=== PATIENT | male | born 1970 | race Caucasian/White ===

== ENCOUNTER 2017-10-02 12:21 | Inpatient (IN) | payer OTHER ==
[~2017-10-02] VITALS: Ht 180.3 cm; Wt 106.7 kg
--- NOTE | ~2017-10-02 | CON ---
[place], [place] REPORT OF CONSULTATION NAME: АННА PEREIRA UNIT #: [id number] ROOM: 511 DOCTOR: HARSHAD DUKE DMD BIRTHDATE: [birth year] DOS: REASON FOR CONSULTATION: Right-sided dental abscess. HISTORY OF PRESENT ILLNESS: The patient was admitted for right-sided facial swelling and pain. On exam minimal swelling noted. The patient denies any dyspnea or dysphagia. No submandibular swelling, submental swelling. Normal range of motion. Intraoral exam reveals maxillary edentulism and multiple carious teeth on the mandible with significant periodontal disease. No sublingual swelling noted. Extreme tenderness of the lower right first molar. Discussed treatment needed, recommended full mouth extraction. The patient okay for dental discharge with oral antibiotics and should followup with private dentist for extraction therapy. HARSHAD DUKE DMD CM:CONSTR:REPORT OF CONSULTATION 0941 10/10/17 1558 interface
[~2017-10-02 12:21] MED LIST: ALLERGY RELIEF10 M1 PO; AMLODIPINE BESY10 MG PO; AMOXIL500 M1 PO; ANAPROX DS550 MG PO; ATENOLOL AND CH1 TAB PO; ATIVAN0.5 MG PO; BENADRYL25 M1 PO; BENTYL10 MG PO; CLINDAMYCIN HC300 MG PO; CLINDAMYCIN PHOSPH1% T; DOCUSATE100 MG PO; ENDOCET 325 MG-1 TA5 PO; EPI EZ PEN1 MG/ML IM; FENOFIBRATE160 MG PO; FLONASE0.05 MG/AC NS; GEMFIBROZIL600 MG PO; GLIPIZIDE10 MG PO; LACTINEX 0.2 MG1 TAB PO; LISINOPRIL20 MG PO; MAG-OX 400400 MG PO; METFORMIN500 MG PO; NEURONTIN300 MG PO; OMEGA-31000 MG PO; PEN-VEE K500 MG PO; PERCOCET 325 MG1 TA3 PO; PREDNISONE10 MG PO; PRILOSEC10 MG PO; PRILOSEC40 MG PO; PROCARDIA XL90 MG PO; QUETIAPINE FUMA25 MG PO; REGLAN5 MG PO; SIMVASTATIN20 MG PO; SINEMET 25-100M1 TAB PO; TESSALON PERLE100 M1 PO; TESTOSTERO200 MG/10 IM; TRAMADOL HCL50 MG PO; TRAZODONE50 MG PO; VENTOLIN H0.09 MG/AC INH; VITAMIN D50000 I2 PO; ZOCOR10 MG PO; ZOLOFT50 MG PO
[2017-10-02 12:41] VITALS: BP 135/104
[2017-10-02] MEDS ORDERED: PERCOCET 10-321 EACH PO (13:39)
[2017-10-02 14:09] LABS: BASO # 0.1 10*3/uL (0.0-0.1); BASO % 0.8 % (0.0-1.0); EOS # 0.3 10*3/uL (0.0-0.4); EOS % 2.5 % (1.0-4.0); HEMATOCRIT 42.7 % (42.0-52.0); LYMPH # 4.8 10*3/uL (1.3-4.4); LYMPH % 38.3 % (27.0-41.0); MEAN CELL VOLUME 77.8 fl (80.0-94.0); MEAN CORPUSCULAR HGB 27.3 pg (27.0-31.0); MEAN CORPUSCULAR HGB CONC 35.1 g/dl (33.0-37.0); MEAN PLATELET VOLUME 9.9 fl (9.6-12.3); MONO # 0.7 10*3/uL (0.1-1.0); MONO % 5.6 % (3.0-9.0); NEUT # 6.5 10*3/uL (2.3-7.9); NEUT % 52.3 % (47.0-73.0); PLATELET COUNT AUTOMATED 286 10*3/uL (130-400); RED BLOOD COUNT 5.49 10*6/uL (4.50-5.90); RED CELL DISTRI WIDTH 12.6 % (0-14.5); WHITE BLOOD COUNT 12.4 10*3/uL (4.8-10.8)
[2017-10-02 14:19] LABS: BUN 14 mg/dl (7-24); CHLORIDE 99 mmol/L (98-107); CREATININE 1.02 mg/dL (0.70-1.30); POTASSIUM 3.3 mmol/L (3.5-5.1); SODIUM 136 mmol/L (136-145)
[2017-10-02 15:00] VITALS: BP 132/92
[2017-10-02 17:10] VITALS: BP 146/81
[2017-10-02] MEDS ORDERED: ZOLOFT50 MG PO (17:54)
[2017-10-02] MEDS ORDERED: ATIVAN0.5 MG PO (17:54)
[2017-10-02] MEDS ORDERED: METFORMIN1000 MG PO (17:54)
[2017-10-02] MEDS ORDERED: ATENOLOL-CHLOR1 EAC1 PO (17:55)
[2017-10-02] MEDS ORDERED: PROCARDIA XL90 MG PO (17:55)
[2017-10-02] MEDS ORDERED: ZOCOR40 MG PO (17:56)
[2017-10-02] MEDS ORDERED: FENOFIBRATE160 MG PO (17:56)
[2017-10-02] MEDS ORDERED: ASPIRIN81 M1 PO (17:56)
[2017-10-02 20:20] VITALS: BP 155/76
[2017-10-03] VITALS: BP 138/76
[2017-10-03 07:02] LABS: BASO # 0.1 10*3/uL (0.0-0.1); BASO % 0.7 % (0.0-1.0); EOS # 0.2 10*3/uL (0.0-0.4); EOS % 2.5 % (1.0-4.0); HEMATOCRIT 39.1 % (42.0-52.0); HEMOGLOBIN 13.5 g/dl (14.0-18.0); LYMPH # 3.4 10*3/uL (1.3-4.4); LYMPH % 35.6 % (27.0-41.0); MEAN CELL VOLUME 79.3 fl (80.0-94.0); MEAN CORPUSCULAR HGB 27.4 pg (27.0-31.0); MEAN CORPUSCULAR HGB CONC 34.5 g/dl (33.0-37.0); MEAN PLATELET VOLUME 9.8 fl (9.6-12.3); MONO # 0.6 10*3/uL (0.1-1.0); MONO % 5.9 % (3.0-9.0); NEUT # 5.3 10*3/uL (2.3-7.9); NEUT % 54.9 % (47.0-73.0); PLATELET COUNT AUTOMATED 247 10*3/uL (130-400); RED BLOOD COUNT 4.93 10*6/uL (4.50-5.90); RED CELL DISTRI WIDTH 12.6 % (0-14.5); WHITE BLOOD COUNT 9.6 10*3/uL (4.8-10.8)
[2017-10-03 07:21] LABS: ALKALINE PHOSPHATASE 98 U/L (45-117); BUN 7 mg/dl (7-24); CHLORIDE 102 mmol/L (98-107); CHOLESTEROL 174 mg/dL (<200); CREATININE 0.87 mg/dL (0.70-1.30); HDL CHOLESTEROL 25 mg/dl (40-60); PHOSPHOROUS 3.9 mg/dL (2.5-4.9); POTASSIUM 3.4 mmol/L (3.5-5.1); SGOT/AST 16 IU/L (3-35); SGPT/ALT 36 U/L (12-78); SODIUM 136 mmol/L (136-145); TOTAL PROTEIN 6.8 gm/dL (6.4-8.2); TRIGLYCERIDES 540 mg/dl (<150)
[2017-10-03 07:29] LABS: INTERNATIONAL NORM RATIO 0.9 (2.0-3.5)
[2017-10-03 08:00] VITALS: BP 168/102
[2017-10-03 08:29] LABS: VITAMIN D, 25-HYDROXY 13.5 ng/mL (30-100)
[2017-10-03 11:13] VITALS: BP 158/76
[2017-10-03 12:00] VITALS: BP 158/76
[2017-10-03] MEDS ORDERED: VITAMIN D-32000 UNIT PO (12:04)
[2017-10-03] MEDS ORDERED: CLEOCIN HCL300 MG PO (12:08)
[2017-10-03] MEDS ORDERED: NORCO 5-325 TA1 EACH PO (12:09)
[2017-10-03 14:31] VITALS: BP 158/91
== END 2017-10-03 14:59 | disposition home or self-care (01) | DRG 872 ==
LOC: ED 12:21 → EDHOLD 16:18 → 5E 16:18
PROVIDERS: Emergency Medicine; Hospitalist
DX: A41.9 Sepsis, unspecified organism (principal); E11.9 Type 2 diabetes mellitus without complications; E78.5 Hyperlipidemia, unspecified; J44.9 Chronic obstructive pulmonary disease, unspecified; K04.7 Periapical abscess without sinus; R65.20 Severe sepsis without septic shock; I10 Essential (primary) hypertension; J40 Bronchitis, not specified as acute or chronic; E87.6 Hypokalemia; R91.1 Solitary pulmonary nodule; Z83.6 Family history of other diseases of the respiratory system; Z90.49 Acquired absence of other specified parts of digestive tract; Z79.899 Other long term (current) drug therapy; Z88.8 Allergy status to other drugs, medicaments and biological substances; Z79.82 Long term (current) use of aspirin; Z79.4 Long term (current) use of insulin; Z72.0 Tobacco use

== ENCOUNTER → 2017-11-09 | Outpatient (CLI) | payer OTHER ==
[~2017-11-09] MED LIST changes: +ASPIRIN81 M1 PO; +ATENOLOL-CHLOR1 EAC1 PO; +CLEOCIN HCL300 MG PO; +METFORMIN1000 MG PO; +NORCO 5-325 TA1 EACH PO; +PERCOCET 10-321 EACH PO; +VITAMIN D-32000 UNIT PO; +ZOCOR40 MG PO
== END | disposition home or self-care (01) ==
LOC: RAD 12:47
DX: J44.9 Chronic obstructive pulmonary disease, unspecified (principal); R07.9 Chest pain, unspecified; I10 Essential (primary) hypertension; R91.8 Other nonspecific abnormal finding of lung field; F17.200 Nicotine dependence, unspecified, uncomplicated

== ENCOUNTER 2017-12-29 13:19 | Inpatient (IN) | payer OTHER ==
[~2017-12-29] VITALS: Ht 180.3 cm; Wt 108.0 kg
--- NOTE | ~2017-12-29 | ST ---
[place], [place] EXERCISE STRESS TEST REPORT NAME: АННА PEREIRA UNIT #: [id number] ROOM: 405 DOCTOR: LEDA ONEAL [facility] BIRTHDATE: [birth year] DOS: 12/31/2017 STRESS CARDIOLITE The patient underwent stress test on stage 2 Magdi protocol, up to 7 mets and up to 90% predicted heart rate of 133 per minute. No ischemic changes on the EKG. Isotope was injected. Exercise for a minute after injecting the isotope. The patient developed severe fatigue and tiredness, could not perform any further. The patient is markedly deconditioned. Exercise tolerance is suboptimal. Myocardial perfusion scan to follow. TA TOMPKINS MD CM:STRESS:EXERCISE STRESS TEST REPORT [id number] 0922 RAGHAV LYLES MD [facility]
--- NOTE | ~2017-12-29 | CON ---
[place], [place] REPORT OF CONSULTATION NAME: АННА PEREIRA UNIT #: [id number] ROOM: 405 [facility] B[facility] [birth year] DOS: 12/31/2017 CARDIOLOGY CONSULTATION HISTORY OF PRESENT ILLNESS: The patient is a 47-year-old male came in with history of severe precordial chest pain lasted for a few minutes, also has shortness of breath, also has dizziness, and progressive fatigue. The patient has history of smoking. Spouse also smokes. Chest pain is progressing for last few weeks and intermittent and get worse on exertion. The patient is scheduled to have the stress test with a Cardiolite as an outpatient, but continued to be symptomatic and came to the Emergency Room. The patient has been following with Dr. Fay and I have seen the patient in the past for the Cardiology and chest x-ray was unremarkable. CT scan because of the swelling of the neck and the jaw done shows no IV contrast and difficult to see the abscess; however, there is no obvious edentulous soft tissue abscess. PAST MEDICAL HISTORY: The patient has a previous history of angioedema, chronic obstructive disease, dyslipidemia, hypertension, history of smoking, and vitamin D deficiency also noted. The patient has non-insulin dependent diabetes mellitus. SOCIAL HISTORY: No alcohol or drug use. The patient has tobacco abuse. FAMILY HISTORY: Father has history of chronic obstructive disease and coronary artery bypass surgery at age of 72. Mother at age of 71 with history of pulmonary fibrosis. ALLERGIES: CANNOT TAKE LISINOPRIL. MEDICATIONS: The patient has been on baby aspirin, atenolol, vitamin D3, fenofibrate, metformin, nifedipine, Sertraline, and also simvastatin. PHYSICAL EXAMINATION: VITAL SIGNS: Stable. NECK: No jugular venous distention noted. Supple. LUNGS: No rales heard. No wheezing heard. HEART: S1, S2 regular. No gallops. ABDOMEN: Soft. SKIN: Warm, color is good, not diaphoretic. EXTREMITIES: No cyanosis. No hepatojugular reflux noted. No peripheral pulses. RECTAL AND GENITAL: Deferred unrelated. DIAGNOSES: 1. Angina. 2. Dyslipidemia. 3. Type 2 diabetes. 4. History of hypertension. 5. Smoking. [place], [place] REPORT OF CONSULTATION NAME: АННА PEREIRA UNIT #: [id number] ROOM: [facility] DOCTOR: LEDA ONEAL [facility] BIRTHDATE: [birth year] PLAN: Stress Cardiolite evaluated for ischemic heart disease. I will review the echocardiogram. The patient initially hypertensive, now stable and blood pressure has been stable. Troponin is unremarkable. Plan of the Lexiscan is abnormal, may consider coronary artery possible revascularization. I explained to the patient transracial approach. TA TOMPKINS MD CM:CONSTR:REPORT OF CONSULTATION 0726 12/31/17 0940 interface
[2017-12-29 13:29] VITALS: BP 123/100
[2017-12-29 13:49] LABS: BASO # 0.1 10*3/uL (0.0-0.1); BASO % 0.7 % (0.0-1.0); EOS # 0.2 10*3/uL (0.0-0.4); EOS % 1.2 % (1.0-4.0); HEMATOCRIT 44.6 % (42.0-52.0); HEMOGLOBIN 15.8 g/dl (14.0-18.0); LYMPH # 4.2 10*3/uL (1.3-4.4); LYMPH % 20.5 % (27.0-41.0); MEAN CORPUSCULAR HGB 27.6 pg (27.0-31.0); MEAN CORPUSCULAR HGB CONC 35.4 g/dl (33.0-37.0); MEAN PLATELET VOLUME 9.8 fl (9.6-12.3); MONO # 1.2 10*3/uL (0.1-1.0); MONO % 5.6 % (3.0-9.0); NEUT # 14.7 10*3/uL (2.3-7.9); NEUT % 71.5 % (47.0-73.0); PLATELET COUNT AUTOMATED 352 10*3/uL (130-400); RED BLOOD COUNT 5.72 10*6/uL (4.50-5.90); RED CELL DISTRI WIDTH 13.2 % (0-14.5); WHITE BLOOD COUNT 20.5 10*3/uL (4.8-10.8)
[2017-12-29 13:52] VITALS: BP 139/91
[2017-12-29 13:55] LABS: ACT PARTIAL THROMBO TIME 22.7 SECONDS (20.8-31.5); INTERNATIONAL NORM RATIO 0.9 (2.0-3.5)
[2017-12-29 14:02] LABS: ALBUMIN 3.5 gm/dl (3.1-4.5); ALKALINE PHOSPHATASE 84 U/L (45-117); BUN 17 mg/dl (7-24); CHLORIDE 99 mmol/L (98-107); CREATININE 1.34 mg/dL (0.70-1.30); POTASSIUM 3.4 mmol/L (3.5-5.1); SGOT/AST 18 IU/L (3-35); SGPT/ALT 34 U/L (12-78); SODIUM 134 mmol/L (136-145)
[2017-12-29 14:03] LABS: BILIRUBIN NEGATIVE (NEGATIVE); BLOOD NEGATIVE (NEGATIVE); CLARITY CLEAR (CLEAR); COLOR YELLOW (YELLOW); GLUCOSE 2+ (NEGATIVE); KETONE NEGATIVE (NEGATIVE); LEUKO ESTERASE NEGATIVE (NEGATIVE); NITRITE NEGATIVE (NEGATIVE); UROBILINOGEN 0.2 E.U./dl (0.2-1.0)
[2017-12-29 14:21] LABS: MUCOUS TRACE; RBC 0-2 rbc/hpf (0-2)
[2017-12-29 14:24] LABS: TROPONIN I < 0.015 ng/ml (<0.045)
[2017-12-29 15:25] VITALS: BP 123/82
[2017-12-29 17:06] VITALS: BP 138/86
[2017-12-29] MEDS ORDERED: CLARITIN10 MG PO (17:45)
[2017-12-29] MEDS ORDERED: OMEPRAZOLE40 MG PO (17:45)
[2017-12-29] MEDS ORDERED: BASAGLAR SC (17:47)
[2017-12-29 17:50] VITALS: BP 144/81
[2017-12-29 20:00] VITALS: BP 133/76
[2017-12-30] VITALS: BP 131/79
[2017-12-30 06:22] LABS: BASO % 0.3 % (0.0-1.0); EOS % 0.1 % (1.0-4.0); HEMATOCRIT 41.3 % (42.0-52.0); HEMOGLOBIN 14.1 g/dl (14.0-18.0); LYMPH # 1.5 10*3/uL (1.3-4.4); LYMPH % 12.4 % (27.0-41.0); MEAN CELL VOLUME 78.8 fl (80.0-94.0); MEAN CORPUSCULAR HGB 26.9 pg (27.0-31.0); MEAN CORPUSCULAR HGB CONC 34.1 g/dl (33.0-37.0); MEAN PLATELET VOLUME 10.3 fl (9.6-12.3); MONO # 0.4 10*3/uL (0.1-1.0); MONO % 3.3 % (3.0-9.0); NEUT # 10.4 10*3/uL (2.3-7.9); NEUT % 83.2 % (47.0-73.0); PLATELET COUNT AUTOMATED 276 10*3/uL (130-400); RED BLOOD COUNT 5.24 10*6/uL (4.50-5.90); RED CELL DISTRI WIDTH 13.1 % (0-14.5); WHITE BLOOD COUNT 12.5 10*3/uL (4.8-10.8)
[2017-12-30 06:26] LABS: ACT PARTIAL THROMBO TIME 26.4 SECONDS (20.8-31.5); INTERNATIONAL NORM RATIO 0.9 (2.0-3.5)
[2017-12-30 06:51] LABS: ALBUMIN 3.1 gm/dl (3.1-4.5); BUN 14 mg/dl (7-24); CHLORIDE 97 mmol/L (98-107); CHOLESTEROL 208 mg/dL (<200); CREATININE 1.05 mg/dL (0.70-1.30); PHOSPHOROUS 3.5 mg/dL (2.5-4.9); POTASSIUM 3.6 mmol/L (3.5-5.1); SGOT/AST 11 IU/L (3-35); SGPT/ALT 26 U/L (12-78); SODIUM 133 mmol/L (136-145); TOTAL PROTEIN 7.4 gm/dL (6.4-8.2); TRIGLYCERIDES 384 mg/dl (<150); VLDL CHOLESTEROL 77 mg/dL (6-40)
[2017-12-30 06:58] LABS: ALKALINE PHOSPHATASE 74 U/L (45-117); FREE T4 1.19 ng/dl (0.76-1.46); HDL CHOLESTEROL 33 mg/dl (40-60); LDL CHOLESTEROL 98 mg/dL (9-159); THYROID STIM HORMONE (HS) 0.699 uIU/ml (0.358-4.75)
[2017-12-30 07:42] LABS: VITAMIN D, 25-HYDROXY 23.7 ng/mL (30-100)
[2017-12-30 08:00] VITALS: BP 115/78
[2017-12-30] MEDS ORDERED: TRAD5TAB1 PO ×2 (11:52→11:53)
[2017-12-30 12:00] VITALS: BP 146/87
[2017-12-30 16:00] VITALS: BP 150/82
[2017-12-30 20:00] VITALS: BP 135/71
[2017-12-31 00:48] VITALS: BP 133/64
[2017-12-31 08:00] VITALS: BP 126/89
[2017-12-31 09:11] LABS: BASO % 0.3 % (0.0-1.0); EOS % 0.1 % (1.0-4.0); HEMATOCRIT 40.3 % (42.0-52.0); HEMOGLOBIN 14.3 g/dl (14.0-18.0); LYMPH # 3.6 10*3/uL (1.3-4.4); LYMPH % 23.2 % (27.0-41.0); MEAN CELL VOLUME 78.6 fl (80.0-94.0); MEAN CORPUSCULAR HGB 27.9 pg (27.0-31.0); MEAN CORPUSCULAR HGB CONC 35.5 g/dl (33.0-37.0); MEAN PLATELET VOLUME 9.8 fl (9.6-12.3); MONO # 0.8 10*3/uL (0.1-1.0); NEUT % 70.4 % (47.0-73.0); PLATELET COUNT AUTOMATED 335 10*3/uL (130-400); RED BLOOD COUNT 5.13 10*6/uL (4.50-5.90); RED CELL DISTRI WIDTH 13.2 % (0-14.5); WHITE BLOOD COUNT 15.6 10*3/uL (4.8-10.8)
[2017-12-31 09:44] LABS: BUN 21 mg/dl (7-24); CHLORIDE 101 mmol/L (98-107); CREATININE 1.24 mg/dL (0.70-1.30); POTASSIUM 3.7 mmol/L (3.5-5.1); SODIUM 137 mmol/L (136-145)
[2017-12-31 12:00] VITALS: BP 116/90
[2017-12-31] MEDS ORDERED: DOXYCYCLINE100 M3 PO (15:51)
== END 2017-12-31 16:07 | disposition home or self-care (01) | DRG 871 ==
LOC: ED 13:19 → 4E 16:42 → EDHOLD 16:42 → 4E 17:29
PROVIDERS: Emergency Medicine; Internal Medicine; Nurse Practitioner Family
PROC: 4A02XM4 Measurement of Cardiac Total Activity, External Approach (ICD-10-PCS; principal; 2017-12-31)
PROC: 3E033HZ Introduction of Radioactive Substance into Peripheral Vein, Percutaneous Approach (ICD-10-PCS; 2017-12-31)
DX: A41.9 Sepsis, unspecified organism (principal); N17.0 Acute kidney failure with tubular necrosis; E87.2 Acidosis; E87.1 Hypo-osmolality and hyponatremia; L03.211 Cellulitis of face; J44.1 Chronic obstructive pulmonary disease with (acute) exacerbation; E83.42 Hypomagnesemia; E87.6 Hypokalemia; K11.20 Sialoadenitis, unspecified; E53.8 Deficiency of other specified B group vitamins; R65.20 Severe sepsis without septic shock; Z72.0 Tobacco use; I10 Essential (primary) hypertension; E78.5 Hyperlipidemia, unspecified; E11.65 Type 2 diabetes mellitus with hyperglycemia; E66.01 Morbid (severe) obesity due to excess calories; I20.9 Angina pectoris, unspecified; E87.8 Other disorders of electrolyte and fluid balance, not elsewhere classified; Z88.8 Allergy status to other drugs, medicaments and biological substances; Z79.899 Other long term (current) drug therapy; Z79.82 Long term (current) use of aspirin; Z79.84 Long term (current) use of oral hypoglycemic drugs; Z90.49 Acquired absence of other specified parts of digestive tract; Z83.6 Family history of other diseases of the respiratory system; Z71.6 Tobacco abuse counseling; Z82.49 Family history of ischemic heart disease and other diseases of the circulatory system; Z82.5 Family history of asthma and other chronic lower respiratory diseases; Z68.33 Body mass index [BMI] 33.0-33.9, adult

== ENCOUNTER 2018-10-22 14:19 | Inpatient (IN) | payer OTHER ==
--- NOTE | ~2018-10-22 | CON ---
[place], [place] REPORT OF CONSULTATION NAME: [facility]ННА [facility]IRA [id number] UNIT #: [id number] ROOM: 415 DOCTOR: PHD JOCELYNN EUGENE BIRTHDATE: [birth year] DOS: 10/23/2018 HISTORY OF PRESENT ILLNESS: The patient is a 48-year-old male referred by Dr. Fay with concerns for anxiety and depression. At the present time, the patient is on the 4th floor at [facility]. The patient lives with his . They have no children. 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 He endorsed sporadic alcohol use up to 12 beers per occasion and a pack per day of tobacco. He denied illegal drug use. PAST MEDICAL HISTORY: Angioedema, COPD, dyslipidemia, hidradenitis, hypertension, lung nodule, morbid obesity, non-insulin dependent type 2 diabetes mellitus, opioid abuse, tobacco abuse, vitamin D deficiency. MEDICATIONS: Nicoderm, Claritin, vitamin D, TriCor, aspirin, Zocor, Tenormin, Procardia XL, Zoloft, Lovenox, Ecotrin, Flomax, Prilosec, Humalog, Tylenol, Lantus, Solu-Medrol, DuoNeb, Rocephin, Zithromax, Ativan. PHYSICAL EXAMINATION: GENERAL: The patient is awake, alert and oriented. He was lying in bed in no apparent distress with his at bedside. Eye contact and social skills were appropriate. The patient was pleasant and cooperative. MENTAL STATUS: Mood was anxious and depressed without suicidal ideation, plan or intent. He denied homicidal ideation. He reports his primary symptom as agoraphobia. He also has difficulty with sleep initiation and maintenance, feeling shaky, fearful and hopeless. Affect was restricted in range. Speech was within normal limits with respect to rhythm, rate, volume and tone. Expressive and receptive language appeared to be within normal limits conversationally. Thought process was linear and goal directed. There was no evidence of hallucinations or delusions. Insight and judgment appeared appropriate. DIAGNOSES: Agoraphobia, unspecified depressive disorder, tobacco use disorder, alcohol use disorder. RECOMMENDATIONS: Consulted with Dr. Tenorio about the patient's medications, he suggested discontinuing Zoloft in favor of Cymbalta 30 mg before bed for 5 days and then increasing that to 60 mg. I also provided the patient with outpatient mental health resources. He is open to pursuing medication management and counseling. Thank you very much for this consult. [place], [place] REPORT OF CONSULTATION NAME: KELLIАННА Trevizo UNIT #: [id number] ROOM: [facility] DOCTOR: JOCELYNN, PHD EUGENE BIRTHDATE: [birth year] Barbara Richard, PhD CM:CONSTR:REPORT OF CONSULTATION 0933 10/24/18 0544 interface
--- NOTE | ~2018-10-22 | CON ---
[place], [place] REPORT OF CONSULTATION NAME: АННА PEREIRA UNIT #: [id number] ROOM: 415 DOCTOR: CHETAN CAREY MD BIRTHDATE: [birth year] DOS: 10/28/2018 HISTORY OF PRESENT ILLNESS: This is a 48-year-old -[place] man who has all major risk factors for coronary artery disease, namely diabetes mellitus, essential hypertension, hyperlipidemia, smoking and family history of premature coronary artery disease along with morbid obesity and physical inactivity which allegedly is from chronic back pain. He has had a head injury in the past as well. He has never had a heart attack, heart failure or rhythm disorder of the heart, although he has COPD and continues to smoke 1 pack of cigarettes per day. He has had right knee surgery and had appendectomy. No use of illicit drugs. He was admitted to the hospital on the with acute epigastric pain and discomfort along with his profuse sweating and nausea. The feeling lasted for about 5-10 minutes and abated. He had no palpitations. Did not pass out. 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 No orthopnea or swelling of the lower extremities. Legs do not hurt when he walks. HOME MEDICATIONS: Had included aspirin, atenolol, chlorthalidone b.i.d., cholecalciferol fenofibrate 160 daily, lorazepam 0.5 mg b.i.d., metformin 1 g b.i.d., nifedipine XL 90 mg daily, omeprazole 40 mg daily, sertraline 50 mg daily, simvastatin 40 daily. PHYSICAL EXAMINATION: GENERAL: This reveals a patient who is alert, oriented. Complexion is fine. There is no jaundice, cyanosis, or tachypnea. There is no thyromegaly or finger clubbing. VITAL SIGNS: Pulse is 80 and regular, blood pressure 146/86. NECK: JVP is normal. AJR is negative. There is no carotid bruit. HEART: There is no cardiomegaly. Cardiac auscultation does not reveal any murmurs or rub. EXTREMITIES: Pedal pulses are palpable and there is no edema in lower extremity. RESPIRATORY: Breath sounds are fairly decent with no adventitious sounds. LABORATORY DATA: ECG on admission demonstrated normal sinus rhythm. He had a Lexiscan Cardiolite study done on the , which showed inferior wall ischemia and EF of 75%. IMPRESSION: This patient, with all major risk factors for coronary artery disease and minor risk factors for coronary artery disease, had his acute symptoms and now is stress positive for inferior wall ischemia. My strong recommendations are to perform a diagnostic heart catheterization and selective coronary angiogram, right transradial approach will be used and I discussed this with him and pointed out the risks and the benefits including CVA, MT, , hematoma, vascular injury and renal insufficiency as well as bleeding. He understands and would like to proceed. [place], [place] REPORT OF CONSULTATION NAME: [facility]ННА [facility]EREIRA [id number] UNIT #: [id number] ROOM: 415 DOCTOR: CHETAN CAREY MD BIRTHDATE: [birth year] I will make arrangement for him to be transferred to [facility] for the procedure. I thank you for this consult. CHETAN CAREY MD CM:CONSTR:REPORT OF CONSULTATION 1649 10/29/18 1526 interface
--- NOTE | ~2018-10-22 | EKG ---
[place], [place] ELECTROCARDIOGRAM REPORT NAME: АННА PEREIRA UNIT #: [id number] ROOM: 415 DOCTOR: KATY DRAFT REPORT BIRTHDATE: [birth year] [facility] Test Date: 2018-10-22 Test Time: 14:49:56 Pat Name: АННА PEREIRA Department: Room: 415 Gender: M Dancing Instructor: : 1970 Requested By: RAGHAV ALFARO Order Number: [id number] Reading MD: Asad Lau MD Measurements Intervals [place] Rate: 89 P: -3 PA: 172 QRS: -39 QRSD: 88 T: 2 QT: 380 QTc: 463 Interpretive Statements Sinus rhythm Left axis deviation Abnormal R-wave progression, late transition Borderline T abnormalities, diffuse leads No previous ECG available for comparison Electronically Signed On 10-22-2018 17:32:45 PST by Asad Lau MD CM:EKGRPT:ELECTROCARDIOGRAM REPORT 1449 1732 RAGHAV ROTH DRAFT REPORT RAGHAV ALFARO DO
--- NOTE | ~2018-10-22 | EKG ---
[place], [place] ELECTROCARDIOGRAM REPORT NAME: АННА PEREIRA UNIT #: [id number] ROOM: 415 DOCTOR: KATY DRAFT REPORT BIRTHDATE: [birth year] [facility] Test Date: 2018-10-23 Test Time: 11:12:10 Pat Name: АННА PEREIRA Department: Room: 415 2 Gender: M Building Rental Manager: Catherine Payton : 1970 Requested By: OLIVA MALONE Order Number: [id number] Reading MD: Asad Lau MD Measurements Intervals [place] Rate: 89 P: 16 MO: 171 QRS: -25 QRSD: 89 T: 8 QT: 386 QTc: 470 Interpretive Statements Sinus rhythm Borderline left axis deviation Borderline T abnormalities, anterior leads Baseline wander in lead(s) V4,V6 Compared to ECG 10/22/2018 14:49:56 No significant change Electronically Signed On 10-23-2018 17:45:33 PST by Asad Lau MD CM:EKGRPT:ELECTROCARDIOGRAM REPORT 1112 1745 OLIVA BURNS DRAFT REPORT OLIVA MALONE
[~2018-10-22 14:19] MED LIST changes: +BASAGLAR SC; +CLARITIN10 MG PO; +DOXYCYCLINE100 M3 PO; +OMEPRAZOLE40 MG PO; +TRAD5TAB1 PO
[2018-10-22 14:22] VITALS: BP 181/88
[2018-10-22 14:38] VITALS: BP 190/101
[2018-10-22 15:15] LABS: BASO # 0.1 10*3/uL (0.0-0.1); BASO % 0.7 % (0.0-1.0); EOS # 0.2 10*3/uL (0.0-0.4); EOS % 1.3 % (1.0-4.0); HEMATOCRIT 43.9 % (42.0-52.0); LYMPH # 3.5 10*3/uL (1.3-4.4); LYMPH % 23.5 % (27.0-41.0); MEAN CELL VOLUME 80.8 fl (80.0-94.0); MEAN CORPUSCULAR HGB 27.6 pg (27.0-31.0); MEAN CORPUSCULAR HGB CONC 34.2 g/dl (33.0-37.0); MONO % 6.4 % (3.0-9.0); NEUT % 67.4 % (47.0-73.0); PLATELET COUNT AUTOMATED 262 10*3/uL (130-400); RED BLOOD COUNT 5.43 10*6/uL (4.50-5.90); RED CELL DISTRI WIDTH 13.5 % (0-14.5); WHITE BLOOD COUNT 14.8 10*3/uL (4.8-10.8)
[2018-10-22 15:33] LABS: ALBUMIN 2.9 gm/dl (3.1-4.5); ALKALINE PHOSPHATASE 100 U/L (45-117); BUN 15 mg/dl (7-24); CHLORIDE 93 mmol/L (98-107); LIPASE 157 U/L (73-393); POTASSIUM 3.4 mmol/L (3.5-5.1); SGOT/AST 19 IU/L (3-35); SGPT/ALT 34 U/L (12-78); SODIUM 129 mmol/L (136-145); TOTAL PROTEIN 7.9 gm/dL (6.4-8.2)
[2018-10-22 15:35] LABS: TROPONIN I < 0.015 ng/ml (<0.045)
[2018-10-22 15:41] LABS: ACT PARTIAL THROMBO TIME 25.5 SECONDS (20.8-31.5); INTERNATIONAL NORM RATIO 0.9 (2.0-3.5)
[2018-10-22 15:57] VITALS: BP 168/84
[2018-10-22 16:28] VITALS: BP 160/97
[2018-10-22 17:29] LABS: BILIRUBIN NEGATIVE (NEGATIVE); BLOOD TRACE-INTACT (NEGATIVE); CLARITY CLEAR (CLEAR); COLOR YELLOW (YELLOW); GLUCOSE 3+ (NEGATIVE); KETONE NEGATIVE (NEGATIVE); LEUKO ESTERASE NEGATIVE (NEGATIVE); NITRITE NEGATIVE (NEGATIVE); UROBILINOGEN 0.2 E.U./dl (0.2-1.0)
[2018-10-22 17:42] LABS: BACTERIA TRACE; RBC 0-2 rbc/hpf (0-2); WBC 0-2 wbc/hpf (0-5)
[2018-10-22] MEDS ORDERED: BASAG SOL SC (17:42)
--- NOTE | 2018-10-22 17:56 | NUR ---
[facility] 48, admitted to , under the services of LUIS Anderson MD with a diagnosis of HYPONATREMIA. Chief complaint is ACHES. Patient arrived via bed from ER. Monitor applied. Initial assessment completed. Vital signs taken and recorded. LUIS ANDERSON MD notified of admission to the unit. Orders received. See assessment for past medical history, medications and allergies. Patient and/or family oriented to unit. [facility] visitation policy reviewed. Clothing/patient valuable form completed. YESSENIA MALONE
[2018-10-22 18:30] VITALS: BP 155/76
--- NOTE | 2018-10-22 18:35 | NUR ---
D5R. CAITIE NOTIFIED OF CONSULT.
[2018-10-22 20:00] VITALS: BP 164/78
[2018-10-23] VITALS: BP 142/76
[2018-10-23 06:36] LABS: BASO # 0.1 10*3/uL (0.0-0.1); BASO % 0.7 % (0.0-1.0); EOS # 0.2 10*3/uL (0.0-0.4); EOS % 1.9 % (1.0-4.0); HEMATOCRIT 43.1 % (42.0-52.0); HEMOGLOBIN 14.2 g/dl (14.0-18.0); LYMPH # 2.7 10*3/uL (1.3-4.4); LYMPH % 29.5 % (27.0-41.0); MEAN CELL VOLUME 81.9 fl (80.0-94.0); MEAN CORPUSCULAR HGB CONC 32.9 g/dl (33.0-37.0); MEAN PLATELET VOLUME 9.8 fl (9.6-12.3); MONO # 0.6 10*3/uL (0.1-1.0); MONO % 6.9 % (3.0-9.0); NEUT # 5.5 10*3/uL (2.3-7.9); NEUT % 60.2 % (47.0-73.0); PLATELET COUNT AUTOMATED 266 10*3/uL (130-400); RED BLOOD COUNT 5.26 10*6/uL (4.50-5.90); RED CELL DISTRI WIDTH 13.3 % (0-14.5)
[2018-10-23 07:04] LABS: ALBUMIN 2.8 gm/dl (3.1-4.5); ALKALINE PHOSPHATASE 85 U/L (45-117); BUN 15 mg/dl (7-24); CHLORIDE 100 mmol/L (98-107); CHOLESTEROL 176 mg/dL (<200); CREATININE 1.04 mg/dL (0.70-1.30); HDL CHOLESTEROL 25 mg/dl (40-60); LDL CHOLESTEROL 82 mg/dL (9-159); POTASSIUM 3.2 mmol/L (3.5-5.1); SGOT/AST 9 IU/L (3-35); SGPT/ALT 30 U/L (12-78); SODIUM 139 mmol/L (136-145); TOTAL PROTEIN 7.4 gm/dL (6.4-8.2); TRIGLYCERIDES 343 mg/dl (<150); VLDL CHOLESTEROL 69 mg/dL (6-40)
[2018-10-23 08:00] VITALS: BP 150/74
--- NOTE | 2018-10-23 08:00 | NUR ---
PT RESTING COMFORTABLY. KIET LARES SPNRCC
[2018-10-23 08:41] LABS: VITAMIN D, 25-HYDROXY 30.5 ng/mL (30-100)
--- NOTE | 2018-10-23 09:00 | NUR ---
Nib Inspector in to talk to patient. Patient states lives at home with his . There are 5 steps in the home. Physician: Dr. Kang Fay [facility] Home health services: none Patient's level of ADLs: INDEPENDENT Patient has working utilities: yes DME: nebulizer Follow-up physician's appointment after d/c: he prefers to make his own follow up appt after discharge Does patient want to access PORTAL?: no Discharge plan discussed with patient. He lives at home with his . He is independent in his ADLs and ambulation. Discussed home health care services and he denies any home needs at this time. When medically stable he will be discharged to home. FLACO SANTIAGO
--- NOTE | 2018-10-23 10:00 | NUR ---
IV FLUID COMPLETE. DC ORDERED. KIET LARES SPNRCC
[2018-10-23 12:00] VITALS: BP 151/83
--- NOTE | 2018-10-23 12:00 | NUR ---
PT RESTING, NO COMPLAINTS AT THIS TIME. KIET LARES SPNRCC
--- NOTE | 2018-10-23 12:00 | NUR ---
DR. CULLEN NOTIFIED OF GLUCOSE RESULT.
--- NOTE | 2018-10-23 13:56 | NUR ---
REPORT GIVEN TO STANLEY MUHAMMAD. KIET BILL
[2018-10-23 16:00] VITALS: BP 129/73
--- NOTE | 2018-10-23 16:30 | NUR ---
DR. ENAMORADO NOTIFIED OF GLUCOSE RESULT.
[2018-10-23 20:00] VITALS: BP 132/75
[2018-10-24] VITALS: BP 127/69
--- NOTE | 2018-10-24 01:22 | NUR ---
24 HR chart check completed.
[2018-10-24 05:40] LABS: BASO % 0.2 % (0.0-1.0); EOS % 0.2 % (1.0-4.0); HEMATOCRIT 39.4 % (42.0-52.0); HEMOGLOBIN 12.9 g/dl (14.0-18.0); LYMPH # 2.1 10*3/uL (1.3-4.4); LYMPH % 16.7 % (27.0-41.0); MEAN CELL VOLUME 81.6 fl (80.0-94.0); MEAN CORPUSCULAR HGB 26.7 pg (27.0-31.0); MEAN CORPUSCULAR HGB CONC 32.7 g/dl (33.0-37.0); MEAN PLATELET VOLUME 10.1 fl (9.6-12.3); MONO # 0.7 10*3/uL (0.1-1.0); MONO % 5.6 % (3.0-9.0); NEUT # 9.3 10*3/uL (2.3-7.9); NEUT % 76.1 % (47.0-73.0); PLATELET COUNT AUTOMATED 271 10*3/uL (130-400); RED BLOOD COUNT 4.83 10*6/uL (4.50-5.90); WHITE BLOOD COUNT 12.3 10*3/uL (4.8-10.8)
[2018-10-24 05:47] LABS: BUN 24 mg/dl (7-24); CHLORIDE 103 mmol/L (98-107); CREATININE 1.17 mg/dL (0.70-1.30); POTASSIUM 4.3 mmol/L (3.5-5.1); SODIUM 140 mmol/L (136-145)
[2018-10-24 08:00] VITALS: BP 122/64
[2018-10-24 12:00] VITALS: BP 150/77
[2018-10-24 16:00] VITALS: BP 123/61
[2018-10-24 20:00] VITALS: BP 141/78
--- NOTE | 2018-10-24 20:45 | NUR ---
ATIVAN GIVEN AT PATIENT REQUEST FOR C/O ANXIETY. SEE EMAR. REINFORCED USE OF CALL LIGHT.
[2018-10-25] VITALS: BP 132/78
--- NOTE | 2018-10-25 03:11 | NUR ---
24 HR chart check completed.
--- NOTE | 2018-10-25 11:54 | NUR ---
PT DOWN FOR STRESS TEST AT THIS TIME.
[2018-10-25 12:00] VITALS: BP 140/80
--- NOTE | 2018-10-25 12:30 | NUR ---
INFORMED CONSENT OBTAINED FOR LEXISCAN NUCLEAR STRESS TEST WITH DR. CULLEN. RESTING EKG NSR WITH A RESTING HR OF 84 WITH BP OF 130/78. LUNGS CLEAR WITH SPO2 OF 98% ON ROOM AIR. PT COMPLETED A 1:00 LEXISCAN PROTOCOL RECEIVING LEXISCAN 0.4 MG IV OVER 10 SECONDS. HAD NO CHEST PAIN OR ANY EKG CHANGES. DID C/O FEELING OF LIGHTHEADEDNESS THAT WAS RELIEVED IN RECOVERY. HAD A PEAK HR OF 93 WITH BP OF 142/78. LAST RECOVERY HR OF 91 WITH BP OF 130/82. AWAITING SCANNING IN STABLE CONDITION.
--- NOTE | 2018-10-25 14:15 | NUR ---
PRN ATIVAN GIVEN FOR C/O ANXIETY. CALL LIGHT IN REACH. SPOUSE AT BEDSIDE.
--- NOTE | 2018-10-25 14:19 | NUR ---
BSG 319. SEE MAR FOR COVERAGE.
--- NOTE | 2018-10-25 14:59 | NUR ---
PER PT, PRN ATIVAN WAS EFFECTIVE FOR COMPLAINTS. CALL LIGHT IN REACH.
[2018-10-25 16:00] VITALS: BP 147/79
[2018-10-25 20:00] VITALS: BP 153/72
--- NOTE | 2018-10-25 21:58 | NUR ---
SLEEPING. NO SXS OF DISTRESS NOTED. CALL LIGHT IN REACH.
--- NOTE | 2018-10-25 22:01 | NUR ---
PRN ATIVAN SEEMS TO BE EFFECTIVE. PT SLEEPING WITH NO SXS OF DISTRESS. CALL LIGHT IN REACH.
--- NOTE | 2018-10-25 22:01 | NUR ---
PRN ATIVAN GIVEN FOR C/O ANXIETY. PT FEELS "JUMPY INSIDE". CALL LIGHT IN REACH.
--- NOTE | 2018-10-25 23:00 | NUR ---
PATIENT IS RESTING IN BED WITH EASY AND REGULAR RESPERS ON ROOM AIR. ASSESSMENT IS COMPLETE WITH NO C/O OR S/S OF DISTRESS NOTED AT THIS TIME. BED IS LOW, LOCKED, AND CALL LIGHT IS WITHIN REACH. SEE SHIFT ASSESSMENT.
[2018-10-26] VITALS: BP 147/67
--- NOTE | 2018-10-26 02:00 | NUR ---
PATIENT SLEEPING, CALL LIGHT IS WITHIN REACH.
--- NOTE | 2018-10-26 06:29 | NUR ---
0600 AND 0730 MEDICATIONS GIVEN AT THIS TIME, PATIENT TOLERATED WELL. CALL LIGHT IS WITHIN REACH.
[2018-10-26 12:00] VITALS: BP 115/84
--- NOTE | 2018-10-26 15:40 | NUR ---
NOTIFIED OF CONSULT
[2018-10-26 16:00] VITALS: BP 151/73
[2018-10-26 20:00] VITALS: BP 148/72
[2018-10-27] VITALS: BP 141/66
[2018-10-27 08:00] VITALS: BP 138/70
--- NOTE | 2018-10-27 08:38 | NUR ---
24 HR chart check completed.
--- NOTE | 2018-10-27 09:00 | NUR ---
RESTING IN BED WITH NO ACUTE DISTRESS NOTED. RESPIRATIONS EASY. LUNGS DIMINISHED, CLEAR. PULSE OX 96% RA. CLAIMS OCCASIONAL PROD COUGH. CALL LIGHT WITHIN REACH. NO VOICED COMPLAINTS
--- NOTE | 2018-10-27 10:57 | NUR ---
REQUESTED AND RECEIVED ATIVAN PER PRN ORDER TO ASSIST WITH ANXIETY. CALL LIGHT WITHIN REACH. WILL MONITOR FOR EFFECTIVENESS
[2018-10-27 12:00] VITALS: BP 151/81
--- NOTE | 2018-10-27 12:00 | NUR ---
EARLIER ATIVAN EFFECTIVE. RESTING WITH NO DISTRESS NOTED. PRESENT AT BEDSIDE. PATIENT AND BOTH EATING HOT DOG SHOP AND DRINKING COKE. EDUCATED PATIENT REGARDING ADA DIET, PATIENT NOT INTERESTED.
--- NOTE | 2018-10-27 13:30 | NUR ---
DR ENAMORADO HERE TO ASSESS PATIENT AND DISCUSS PLAN OF CARE
[2018-10-27 16:00] VITALS: BP 126/83
--- NOTE | 2018-10-27 16:00 | NUR ---
VISITING WITH SISTER. NO DISTRESS NOTED. RESPIRATIONS EASY. VSS. CALL LIGHT WITHIN REACH. NO VOICED COMPLAINTS
[2018-10-27 20:00] VITALS: BP 148/65
--- NOTE | 2018-10-27 22:18 | NUR ---
ATIVAN GIVEN PER PT REQUEST. WATER AND DIET NAVIN JOIE PROVIDED PER REQUEST.PT STATES NO FURTHER NEEDS. ALL SAFETY MEASURES IN PLACE.
[2018-10-28] VITALS: BP 129/70
--- NOTE | 2018-10-28 | NUR ---
PT RESTING, SNORING RESPIRATIONS EASY AND REGULAR ON ROOM AIR. EARLIER ATIVAN APPEARS EFFECTIVE. WILL MONITOR.
[2018-10-28 06:03] LABS: HEMATOCRIT 43.3 % (42.0-52.0); HEMOGLOBIN 14.1 g/dl (14.0-18.0); MEAN CELL VOLUME 82.5 fl (80.0-94.0); MEAN CORPUSCULAR HGB 26.9 pg (27.0-31.0); MEAN CORPUSCULAR HGB CONC 32.6 g/dl (33.0-37.0); MEAN PLATELET VOLUME 9.7 fl (9.6-12.3); PLATELET COUNT AUTOMATED 343 10*3/uL (130-400); RED BLOOD COUNT 5.25 10*6/uL (4.50-5.90); RED CELL DISTRI WIDTH 13.4 % (0-14.5); WHITE BLOOD COUNT 13.3 10*3/uL (4.8-10.8)
[2018-10-28 06:21] LABS: BUN 21 mg/dl (7-24); CHLORIDE 102 mmol/L (98-107); CREATININE 1.08 mg/dL (0.70-1.30); SODIUM 138 mmol/L (136-145)
[2018-10-28 06:33] LABS: BASOPHILS 1 % (0-1); TOTAL CELLS COUNTED 100 #CELLS
[2018-10-28 06:34] LABS: PLATELET SUFFICIENCY NORMAL (NORMAL)
[2018-10-28 07:45] VITALS: BP 140/80
--- NOTE | 2018-10-28 08:34 | NUR ---
PATIENT IS SITTING UP IN BED, VISITING WITH . PT IS PLEASANT AND COOPERATIVE. PT STATES NO PAIN AT THIS TIME. WILL CONTIUE TO MONITOR. GERRY SMITH SPNRCC
--- NOTE | 2018-10-28 09:00 | NUR ---
Social Worker Health Services in to see patient. No new needs or request at this time. He denies any home needs. When medically stable he will be discharged to home.
[2018-10-28 12:00] VITALS: BP 146/86
--- NOTE | 2018-10-28 13:47 | NUR ---
REPORT GIVEN TO CANDACE. PT UP IN BED VISITING WITH FAMILY. NO S/S OF DISTRESS. NO VOICED C/O
[2018-10-28 16:00] VITALS: BP 122/65
[2018-10-28] MEDS ORDERED: Humalog SQ (18:12)
[2018-10-28] MEDS ORDERED: FLOMAX0.4 MG PO (18:12)
[2018-10-28] MEDS ORDERED: NATURE'S BLEND F1 MG PO (18:12)
[2018-10-28] MEDS ORDERED: DOXYCYCLINE100 MG PO (18:12)
[2018-10-28] MEDS ORDERED: DULOXETINE HCL30 MG PO (18:13)
[2018-10-28] MEDS ORDERED: HUMALOG100 UNIT/2 SQ (18:17)
[2018-10-28 20:00] VITALS: BP 136/67
--- NOTE | 2018-10-28 20:40 | NUR ---
PT GLUCOSE RPORTED TO DR DENNY 512. 22 UNITS ORDERES AND RECHECK IN 2 HRS.
[2018-10-29] VITALS: BP 138/67
--- NOTE | 2018-10-29 05:38 | NUR ---
Discharge instructions reviewed with patient/family. Patient receptive and verbalizes understanding. Follow-up care arranged. Written instructions given to patient/family. WILSON ENGLISH
[2018-10-29] MEDS ORDERED: PREDNISONE10 MG PO (09:00)
[2019-02-02] MEDS ORDERED: TYLENOL325 M1 PO (15:47)
[2019-02-02] MEDS ORDERED: FLONASE ALLERG9.9 ML NAS (15:47)
[2019-02-02] MEDS ORDERED: AUGMENTIN 875875 MG PO (15:47)
== END 2018-10-29 05:38 | disposition other institution (70) | DRG 871 ==
LOC: ED 14:19 → 4E 16:13 → EDHOLD 16:13 → 4E 16:42
PROVIDERS: Emergency Medicine; Internal Medicine Nephrology; Nurse Practitioner Family; Student in an Organized Health Care Education/Training Program; ADMIT Internal Medicine
PROC: 4A02XM4 Measurement of Cardiac Total Activity, External Approach (ICD-10-PCS; principal; 2018-10-25)
PROC: 3E073KZ Introduction of Other Diagnostic Substance into Coronary Artery, Percutaneous Approach (ICD-10-PCS; 2018-10-25)
DX: A41.9 Sepsis, unspecified organism (principal); J18.9 Pneumonia, unspecified organism; N17.0 Acute kidney failure with tubular necrosis; E87.1 Hypo-osmolality and hyponatremia; J44.1 Chronic obstructive pulmonary disease with (acute) exacerbation; J44.0 Chronic obstructive pulmonary disease with (acute) lower respiratory infection; E11.65 Type 2 diabetes mellitus with hyperglycemia; E66.01 Morbid (severe) obesity due to excess calories; E55.9 Vitamin D deficiency, unspecified; E87.8 Other disorders of electrolyte and fluid balance, not elsewhere classified; E87.6 Hypokalemia; R65.20 Severe sepsis without septic shock; F41.9 Anxiety disorder, unspecified; G89.29 Other chronic pain; M54.9 Dorsalgia, unspecified; T38.0X5A Adverse effect of glucocorticoids and synthetic analogues, initial encounter; I25.9 Chronic ischemic heart disease, unspecified; F40.00 Agoraphobia, unspecified; F17.210 Nicotine dependence, cigarettes, uncomplicated; D72.810 Lymphocytopenia; K11.20 Sialoadenitis, unspecified; E53.8 Deficiency of other specified B group vitamins; K06.9 Disorder of gingiva and edentulous alveolar ridge, unspecified; I10 Essential (primary) hypertension; E78.5 Hyperlipidemia, unspecified; Z79.4 Long term (current) use of insulin; Z88.8 Allergy status to other drugs, medicaments and biological substances; Z90.49 Acquired absence of other specified parts of digestive tract; Z83.6 Family history of other diseases of the respiratory system; Z82.49 Family history of ischemic heart disease and other diseases of the circulatory system; Z82.5 Family history of asthma and other chronic lower respiratory diseases; Z79.82 Long term (current) use of aspirin; Z79.899 Other long term (current) drug therapy; Y92.89 Other specified places as the place of occurrence of the external cause; Z72.89 Other problems related to lifestyle; Z68.34 Body mass index [BMI] 34.0-34.9, adult

== ENCOUNTER 2019-10-20 19:43 | Inpatient (IN) | payer OTHER ==
[~2019-10-20] VITALS: Ht 180.3 cm; Wt 106.6 kg
[~2019-10-20 19:43] MED LIST changes: +AUGMENTIN 875875 MG PO; +BASAG SOL SC; +DOXYCYCLINE100 MG PO; +DULOXETINE HCL30 MG PO; +FLOMAX0.4 MG PO; +FLONASE ALLERG9.9 ML NAS; +HUMALOG100 UNIT/2 SQ; +Humalog SQ; +NATURE'S BLEND F1 MG PO; +TYLENOL325 M1 PO
[2019-10-20 19:45] VITALS: BP 145/69
--- NOTE | 2019-10-20 21:30 | NUR ---
PT STATES LASHELL HELPED HIS NAUSEA.
[2019-10-20 21:32] LABS: BASO # 0.1 10*3/uL (0.0-0.1); BASO % 0.7 % (0.0-1.0); EOS # 0.3 10*3/uL (0.0-0.4); EOS % 1.4 % (1.0-4.0); HEMATOCRIT 46.7 % (42.0-52.0); HEMOGLOBIN 15.9 g/dl (14.0-18.0); LYMPH # 3.2 10*3/uL (1.3-4.4); LYMPH % 16.2 % (27.0-41.0); MEAN CELL VOLUME 82.7 fl (80.0-94.0); MEAN CORPUSCULAR HGB 28.1 pg (27.0-31.0); MEAN PLATELET VOLUME 9.9 fl (9.6-12.3); MONO # 1.1 10*3/uL (0.1-1.0); MONO % 5.5 % (3.0-9.0); NEUT % 75.7 % (47.0-73.0); PLATELET COUNT AUTOMATED 274 10*3/uL (130-400); RED BLOOD COUNT 5.65 10*6/uL (4.50-5.90); WHITE BLOOD COUNT 19.8 10*3/uL (4.8-10.8)
[2019-10-20 21:46] LABS: ALBUMIN 3.6 gm/dl (3.1-4.5); ALKALINE PHOSPHATASE 77 U/L (45-117); BUN 17 mg/dl (7-24); CHLORIDE 101 mmol/L (98-107); CREATININE 1.16 mg/dL (0.70-1.30); LIPASE 187 U/L (73-393); POTASSIUM 3.5 mmol/L (3.5-5.1); SGOT/AST 13 IU/L (3-35); SGPT/ALT 33 U/L (12-78); SODIUM 134 mmol/L (136-145); TOTAL PROTEIN 7.7 gm/dL (6.4-8.2)
[2019-10-20 22:42] VITALS: BP 141/78
[2019-10-21] VITALS (7 sets, daily range): BP systolic 91–143; BP diastolic 54–81
--- NOTE | 2019-10-21 02:56 | NUR ---
NICODERM PATCH APPLIED TO LEFT DELTOID.
[2019-10-21 06:11] LABS: HEMATOCRIT 44.4 % (42.0-52.0); HEMOGLOBIN 14.9 g/dl (14.0-18.0); MEAN CELL VOLUME 83.5 fl (80.0-94.0); MEAN CORPUSCULAR HGB CONC 33.6 g/dl (33.0-37.0); MEAN PLATELET VOLUME 10.1 fl (9.6-12.3); PLATELET COUNT AUTOMATED 282 10*3/uL (130-400); RED BLOOD COUNT 5.32 10*6/uL (4.50-5.90); RED CELL DISTRI WIDTH 13.1 % (0-14.5)
[2019-10-21 06:15] LABS: BUN 14 mg/dl (7-24); CHLORIDE 105 mmol/L (98-107); CHOLESTEROL 225 mg/dL (<200); HDL CHOLESTEROL 26 mg/dl (40-60); PHOSPHOROUS 4.2 mg/dL (2.5-4.9); POTASSIUM 3.7 mmol/L (3.5-5.1); SODIUM 137 mmol/L (136-145); TRIGLYCERIDES 537 mg/dl (<150)
[2019-10-21 07:25] LABS: BASOPHILS 2 % (0-1); PLATELET SUFFICIENCY NORMAL (NORMAL); TOTAL CELLS COUNTED 100 #CELLS
--- NOTE | 2019-10-21 09:20 | NUR ---
Time: 919 A 49 year old FEMALE admitted to 5E under services of PAO PATEL DO. Pt. arrived via bed from ER. Chief complaint: PNEUMONITIS. GONZALES FREDERICK
[2019-10-21] MEDS ORDERED: VITAMIN D50000 UNIT PO (11:45)
[2019-10-21] MEDS ORDERED: ONCE DAILY1 EACH PO (11:46)
[2019-10-21] MEDS ORDERED: ZOLOFT50 MG PO (11:46)
[2019-10-21] MEDS ORDERED: ATIVAN1 MG PO (11:47)
--- NOTE | 2019-10-21 11:48 | NUR ---
DR. FUNK AWARE PT MEDICATION WAS VERIFIED WITH . NEEDS ORDERED.
--- NOTE | 2019-10-21 12:23 | NUR ---
PT RESTING IN BED WITH AT HIS SIDE. BSG-227, SEE EMAR. NO C/O AT THIS TIME. CALL LIGHT IN REACH.
--- NOTE | 2019-10-21 13:00 | NUR ---
CALLED DR. CRUZ MADE AWARE OF CONSULT.
--- NOTE | 2019-10-21 14:23 | NUR ---
MEDICATED WITH ATIVAN PO PER PT REQUEST, SEE EMAR FOR ANXIETY. CALL LIGHT IN REACH. AT HIS SIDE.
--- NOTE | 2019-10-21 14:28 | NUR ---
CALLED DR. SOLORZANO, MADE AWARE PT STATES CEPACOL MAKES HIM SICK TO STOMACH. AND REQUESTING CHLORASEPTIC SPRAY. HE WILL LOOK INTO IT.
--- NOTE | 2019-10-21 17:00 | NUR ---
PT RESTING IN BED. STATES HE ATE DINNER ALREADY. BSG-452, SEE EMAR. TOLERATED ROUTINE MED WITH NO PROBLEM. NO C/O AT THIS TIME. CALL LIGHT IN REACH.
--- NOTE | 2019-10-21 22:15 | NUR ---
PT RESTING IN BED. BSG-452, SEE EMAR. TOLERATED ROUTINE MED WITH NO PROBLEM. CALL LIGHT IN REACH.
--- NOTE | 2019-10-21 22:32 | NUR ---
CALLED DR. OLIVO MADE AWARE BSG-461 AND BSG EARLIER WAS 452. NO NEW ORDERS.
[2019-10-22] VITALS: BP 137/76
[2019-10-22 07:16] LABS: BASO # 0.1 10*3/uL (0.0-0.1); BASO % 0.3 % (0.0-1.0); EOS % 0.3 % (1.0-4.0); HEMATOCRIT 43.9 % (42.0-52.0); HEMOGLOBIN 14.7 g/dl (14.0-18.0); LYMPH # 2.3 10*3/uL (1.3-4.4); LYMPH % 14.9 % (27.0-41.0); MEAN CELL VOLUME 82.7 fl (80.0-94.0); MEAN CORPUSCULAR HGB 27.7 pg (27.0-31.0); MEAN CORPUSCULAR HGB CONC 33.5 g/dl (33.0-37.0); MEAN PLATELET VOLUME 10.5 fl (9.6-12.3); MONO # 0.9 10*3/uL (0.1-1.0); MONO % 5.6 % (3.0-9.0); NEUT # 11.8 10*3/uL (2.3-7.9); PLATELET COUNT AUTOMATED 310 10*3/uL (130-400); RED BLOOD COUNT 5.31 10*6/uL (4.50-5.90); RED CELL DISTRI WIDTH 12.8 % (0-14.5); WHITE BLOOD COUNT 15.1 10*3/uL (4.8-10.8)
[2019-10-22 07:17] LABS: BUN 19 mg/dl (7-24); CHLORIDE 103 mmol/L (98-107); POTASSIUM 4.2 mmol/L (3.5-5.1); SODIUM 135 mmol/L (136-145)
[2019-10-22 08:00] VITALS: BP 139/77
--- NOTE | 2019-10-22 11:55 | NUR ---
GRAIN OPERATOR notified the patient is wanting to be referred to [facility]. PRECERT will be required. Will need PT/OT Evals. SHAMIKA faxed referral to [facility]. -SHAMIKA Bird
[2019-10-22 12:00] VITALS: BP 132/74
--- NOTE | 2019-10-22 14:41 | NUR ---
Water Meter Mechanic in to talk to patient. Patient states lives at HOME with . There are OUTSIDE steps in the home. Physician: OPAL Pharmacy: [facility] Home health services: NONE Patient's level of ADLs: MINIMAL ASSIST Patient has working utilities: YES DME: CANE ROLLATOR Follow-up physician's appointment after d/c: WILL BE MADE BY HOSPITALIST NURSE DIRECTOR ON DISCHARGE Does patient want to access PORTAL?: NO Discharge plan PT LIVES AT HOME WITH HIS . PT STATES HE HAS BEEN IN BED FOR 4 MONTHS AND HIS ARMS AND LEGS ARE VERY WEAK AND SHAKEY. PT IS REQUESTING TO GO TO [facility] PRIOR TO RETURNING HOME. BOWLING PIN REFINISHER NOTIFIED AND WILL MAKE REFERRAL. WILL CONTINUE TO FOLLOW. . TYSON FANG
[2019-10-22 16:00] VITALS: BP 148/78
[2019-10-22 20:00] VITALS: BP 167/70
--- NOTE | 2019-10-22 21:45 | NUR ---
PATIENT STAED THAT HE DOES NOT WANT WOKEN UP AT MIDNIGHT FOR CEPACHOL.
[2019-10-23] VITALS (9 sets, daily range): BP systolic 120–147; BP diastolic 51–89
--- NOTE | 2019-10-23 00:11 | NUR ---
24 HR chart check completed.
--- NOTE | 2019-10-23 02:16 | NUR ---
PATIENT SLEEPING, NO DISTRESS NOTED, WILL MONITOR
[2019-10-23 06:33] LABS: BASO % 0.2 % (0.0-1.0); EOS % 0.2 % (1.0-4.0); HEMATOCRIT 43.8 % (42.0-52.0); HEMOGLOBIN 14.5 g/dl (14.0-18.0); LYMPH # 2.9 10*3/uL (1.3-4.4); MEAN CELL VOLUME 83.4 fl (80.0-94.0); MEAN CORPUSCULAR HGB 27.6 pg (27.0-31.0); MEAN CORPUSCULAR HGB CONC 33.1 g/dl (33.0-37.0); MEAN PLATELET VOLUME 10.5 fl (9.6-12.3); MONO # 0.7 10*3/uL (0.1-1.0); MONO % 5.7 % (3.0-9.0); NEUT # 9.3 10*3/uL (2.3-7.9); NEUT % 70.9 % (47.0-73.0); PLATELET COUNT AUTOMATED 303 10*3/uL (130-400); RED BLOOD COUNT 5.25 10*6/uL (4.50-5.90); RED CELL DISTRI WIDTH 13.2 % (0-14.5); WHITE BLOOD COUNT 13.1 10*3/uL (4.8-10.8)
[2019-10-23 06:58] LABS: BUN 19 mg/dl (7-24); CHLORIDE 102 mmol/L (98-107); CREATININE 1.22 mg/dL (0.70-1.30); POTASSIUM 4.1 mmol/L (3.5-5.1); SODIUM 137 mmol/L (136-145)
--- NOTE | 2019-10-23 07:16 | NUR ---
PRECERT is required. Waiting on PT/OT Evals to complete referral and to start PRECERT process. TONGSMAN faxed updates to [facility]. TONGSMAN completed HENs. -SHAMIKA Bird
--- NOTE | 2019-10-23 07:45 | NUR ---
INITIAL ASSESSMENT COMPLETE. PT TRANSPORTED VIA BED TO OR FOR BRONCH WITH DR CRUZ.
--- NOTE | 2019-10-23 11:10 | NUR ---
PHYSICAL THERAPY Dora completed moderate levele complexity 75980 recomend snf PT to work on transfers,amb,balance,safety,strenghthening. Roseanna Acevedo PT
--- NOTE | 2019-10-23 11:10 | NUR ---
Occupational Therapy evaluation completed on 5 with full eval to follow. PRecautions include impaired standing balance, safety and activity tolerance, assist with ADLs and need for ww use, moderated complexity 76021. Recommend OT per POC and SNF to enable return home at independent level. Thank you. Jovani Chatterjee OTR/L
--- NOTE | 2019-10-23 11:55 | NUR ---
PT HAS BEEN REFERRED TO [facility]. WAITING FOR ACCEPTANCE AND WILL REQUIRE A PRECERT.
--- NOTE | 2019-10-23 12:59 | NUR ---
Updates and therapy evals faxed to Allison at [facility] for precert.
--- NOTE | 2019-10-23 19:43 | NUR ---
SPOKE WITH DR. OLIVO PERMISSION FOR PATIENT TO HAVE ANOTHER PATCH PUT ON SINCE HIS FELL OFF
--- NOTE | 2019-10-23 23:13 | NUR ---
24 HR chart check completed.
[2019-10-24] VITALS: BP 139/79
[2019-10-24 08:00] VITALS: BP 137/85
--- NOTE | 2019-10-24 09:00 | NUR ---
Live In Housekeeper in to see patient. He states Dr. Pinon said he could go home. Discussed home health care services and he agreed but wasn't sure how that would work because he lives in a small mobile home with 5 dogs. He requested to have outpatient therapy at the [facility] and possibly aqua therapy. Dr. Russell notified. Script received and given to nurse, Susu. Patient would also like to follow with Emmie Gallego outpatient. Notified Emmie Gallego for an appt. He states he will reach out to Emmie to set up an appointment.
--- NOTE | 2019-10-24 09:10 | NUR ---
DR CRUZ ROUNDED AND RECOMMENDED PT TO BE D/C'D WITH HOME HEALTH. PER DR CRUZ PT IS WEAK BUT DOES NOT REQUIRE SNF.
[2019-10-24] MEDS ORDERED: DOXYCYCLINE100 M3 PO (09:42)
[2019-10-24] MEDS ORDERED: MUCINEX ER600 MG PO (09:42)
[2019-10-24] MEDS ORDERED: PREDNISONE10 MG PO (09:42)
--- NOTE | 2019-10-24 10:05 | NUR ---
PHYSICAL THERAPY Patient seen this am 1:1 for therapy visit and was sitting up on EOB upon therapist arrival. Patient identified by name / and presented on RA with c/o 5/10 low back pain. Patient educated on low back precautions to prevent bending, twisting, rotational trunk movements to decrease c/o pain. Patient transfers sit to stand SBA and ambulates with use of wh walker, 75'x 1, CGA, demonstrating bouts of impulsive gait velocity. Patient needed v/c to improve wh walker safety / navigation and needed v/c for increased standing posture. Patient returned to EOB sit and remained with call light, tray table and telephone. Will continue per POC as tolerated, total treatment time 16 minutes. Brendon Palmer, KELP CUTTER
--- NOTE | 2019-10-24 10:05 | NUR ---
OT NOTE Pt was seen this A.M. 1:1 for 15 minute OT session. Upon arrival pt was short sitting in bed. Pt identified by name and and had complaints of 5/10 back pain. Pt transferred supine to sit EOB with supervision. While sitting EOB pt was educated on back protection with bending, lifting, and twisting. Pt verbalized understanding. Pt gathered slippers from floor level while bending from the EOB with no complaints of increased pain and donned with Supervision. Functional mobility was then completed into the bathroom with SBA and use of w/w with occasional verbal prompts for slowing down due to being impulsive. Upon entering the bathroom pt twisted to turn the light on while reaching outside base of support and had minor LOB to the L that was able to be self corrected. Educated pt again on importance of not twisting for back protection and stepping closer to the item versus reaching to avoid risk of falling. Pt transferred on/off standard commode with supervision and use of grab bar for UE support. Functional mobility completed back to the EOB, throughout pt had multiple episodes of both bending and twisting and had no complaints of increased pain or face grimicing of any kind. Pt was left sitting upright on the EOB with call light in hand, tray table in place, and phone in reach. Continue with POC as indicated. JENNIFER Almazan
--- NOTE | 2019-10-24 11:01 | NUR ---
Discharge instructions reviewed with patient/family. Patient receptive and verbalizes understanding. Follow-up care arranged. Written instructions given to patient/family. JACKSON CHOU
--- NOTE | 2019-10-24 15:16 | NUR ---
OCCUPATIONAL THERAPY CO-SIGN I approve of the Occupational Therapy notes written above. JAYSHREE LOZADA OTR/Bunny
--- NOTE | 2019-10-24 15:22 | NUR ---
PHYSICAL THERAPY CO-SIGN I approve of the Physical Therapy notes written above. Roseanna Acevedo PT
[2019-10-24 18:08] LABS: ACID FAST SPEC PROCESSING Concentration (.)
[2019-12-04 10:08] LABS: ACID FAST CULTURE Negative (.)
== END 2019-10-24 11:01 | disposition home or self-care (01) | DRG 720 ==
LOC: ED 19:43 → 5E 10-21 00:28 → EDHOLD 10-21 00:28 → 5E 10-21 08:38
PROVIDERS: Family Medicine; Internal Medicine; Internal Medicine Critical Care Medicine; Nurse Practitioner Family; ADMIT Internal Medicine
PROC: 0B928ZZ Drainage of Carina, Via Natural or Artificial Opening Endoscopic (ICD-10-PCS; principal; 2019-10-23)
PROC: 0B9B8ZZ Drainage of Left Lower Lobe Bronchus, Via Natural or Artificial Opening Endoscopic (ICD-10-PCS; 2019-10-23)
PROC: 0B948ZZ Drainage of Right Upper Lobe Bronchus, Via Natural or Artificial Opening Endoscopic (ICD-10-PCS; 2019-10-23)
PROC: 0B988ZZ Drainage of Left Upper Lobe Bronchus, Via Natural or Artificial Opening Endoscopic (ICD-10-PCS; 2019-10-23)
PROC: 0B918ZZ Drainage of Trachea, Via Natural or Artificial Opening Endoscopic (ICD-10-PCS; 2019-10-23)
PROC: 0B958ZZ Drainage of Right Middle Lobe Bronchus, Via Natural or Artificial Opening Endoscopic (ICD-10-PCS; 2019-10-23)
PROC: 0B938ZZ Drainage of Right Main Bronchus, Via Natural or Artificial Opening Endoscopic (ICD-10-PCS; 2019-10-23)
PROC: 0B978ZZ Drainage of Left Main Bronchus, Via Natural or Artificial Opening Endoscopic (ICD-10-PCS; 2019-10-23)
PROC: 0B968ZZ Drainage of Right Lower Lobe Bronchus, Via Natural or Artificial Opening Endoscopic (ICD-10-PCS; 2019-10-23)
DX: A41.9 Sepsis, unspecified organism (principal); J44.1 Chronic obstructive pulmonary disease with (acute) exacerbation; J18.9 Pneumonia, unspecified organism; E87.1 Hypo-osmolality and hyponatremia; I10 Essential (primary) hypertension; J44.0 Chronic obstructive pulmonary disease with (acute) lower respiratory infection; E11.65 Type 2 diabetes mellitus with hyperglycemia; J32.9 Chronic sinusitis, unspecified; E78.5 Hyperlipidemia, unspecified; E55.9 Vitamin D deficiency, unspecified; E66.01 Morbid (severe) obesity due to excess calories; F17.210 Nicotine dependence, cigarettes, uncomplicated; J20.9 Acute bronchitis, unspecified; T17.990A Other foreign object in respiratory tract, part unspecified in causing asphyxiation, initial encounter; X58.XXXA Exposure to other specified factors, initial encounter; Z79.4 Long term (current) use of insulin; Z71.6 Tobacco abuse counseling; Z68.32 Body mass index [BMI] 32.0-32.9, adult; Z82.49 Family history of ischemic heart disease and other diseases of the circulatory system; Z83.6 Family history of other diseases of the respiratory system; Z79.82 Long term (current) use of aspirin; Z79.899 Other long term (current) drug therapy; Z88.8 Allergy status to other drugs, medicaments and biological substances; Y93.89 Activity, other specified

== ENCOUNTER 2020-02-18 20:20 | Emergency (ER) | payer OTHER ==
[~2020-02-18] VITALS: Ht 180.3 cm; Wt 99.8 kg
[~2020-02-18 20:20] MED LIST changes: +ATIVAN1 MG PO; +MUCINEX ER600 MG PO; +ONCE DAILY1 EACH PO; +VITAMIN D50000 UNIT PO
[2020-02-18 20:32] VITALS: BP 152/74
[2020-02-18] MEDS ORDERED: ALOGLIPTIN6.25 MG PO (21:51)
[2020-02-18 22:29] LABS: HEMATOCRIT 45.5 % (42.0-52.0); MEAN CELL VOLUME 79.7 fl (80.0-94.0); MEAN CORPUSCULAR HGB 27.7 pg (27.0-31.0); MEAN CORPUSCULAR HGB CONC 34.7 g/dl (33.0-37.0); MEAN PLATELET VOLUME 9.9 fl (9.6-12.3); PLATELET COUNT AUTOMATED 404 10*3/uL (130-400); RED BLOOD COUNT 5.71 10*6/uL (4.50-5.90); RED CELL DISTRI WIDTH 12.7 % (0-14.5); WHITE BLOOD COUNT 13.7 10*3/uL (4.8-10.8)
[2020-02-18 22:45] LABS: ALBUMIN 3.4 gm/dl (3.1-4.5); ALKALINE PHOSPHATASE 74 U/L (45-117); BUN 21 mg/dl (7-24); CHLORIDE 101 mmol/L (98-107); CREATININE 1.11 mg/dL (0.70-1.30); LIPASE 149 U/L (73-393); POTASSIUM 3.5 mmol/L (3.5-5.1); SGOT/AST 18 IU/L (3-35); SGPT/ALT 44 U/L (12-78); SODIUM 135 mmol/L (136-145); TOTAL PROTEIN 7.7 gm/dL (6.4-8.2)
[2020-02-18 22:52] LABS: ATYPICAL LYMPHS 4 % (0-0); TOTAL CELLS COUNTED 100 #CELLS
[2020-02-18 22:53] LABS: PLATELET SUFFICIENCY NORMAL (NORMAL); TROPONIN I < 0.015 ng/ml (<0.045)
[2020-02-18] MEDS ORDERED: TESSALON PERLE100 M1 PO (23:09)
[2020-02-18] MEDS ORDERED: ZITHROMAX250 MG PO (23:09)
[2020-02-18] MEDS ORDERED: PREDNISONE10 MG PO (23:09)
== END 2020-02-18 23:43 | disposition home or self-care (01) ==
LOC: ED 20:20
PROVIDERS: Physician Assistant
DX: J40 Bronchitis, not specified as acute or chronic (principal); B34.9 Viral infection, unspecified; Z79.899 Other long term (current) drug therapy

== ENCOUNTER → 2020-03-24 | Outpatient (CLI) | payer OTHER ==
[~2020-03-24] MED LIST changes: +ALOGLIPTIN6.25 MG PO; +ZITHROMAX250 MG PO
[2020-03-24 09:31] LABS: HEMATOCRIT 44.1 % (42.0-52.0); MEAN CELL VOLUME 80.8 fl (80.0-94.0); MEAN CORPUSCULAR HGB CONC 34.7 g/dl (33.0-37.0); MEAN PLATELET VOLUME 9.9 fl (9.6-12.3); RED BLOOD COUNT 5.46 10*6/uL (4.50-5.90); RED CELL DISTRI WIDTH 13.1 % (0-14.5); WHITE BLOOD COUNT 13.2 10*3/uL (4.8-10.8)
[2020-03-24 09:59] LABS: ALBUMIN 3.4 gm/dl (3.1-4.5); ALKALINE PHOSPHATASE 87 U/L (45-117); BUN 14 mg/dl (7-24); CHLORIDE 103 mmol/L (98-107); CHOLESTEROL 175 mg/dL (<200); CREATININE 1.16 mg/dL (0.70-1.30); HDL CHOLESTEROL 29 mg/dl (40-60); POTASSIUM 3.5 mmol/L (3.5-5.1); SGOT/AST 17 IU/L (3-35); SGPT/ALT 43 U/L (12-78); SODIUM 135 mmol/L (136-145); TOTAL PROTEIN 7.8 gm/dL (6.4-8.2); TRIGLYCERIDES 634 mg/dl (<150)
== END | disposition home or self-care (01) ==
LOC: LAB 09:08
PROVIDERS: Registered Nurse Flight
DX: M47.816 Spondylosis without myelopathy or radiculopathy, lumbar region (principal); J98.11 Atelectasis; M85.88 Other specified disorders of bone density and structure, other site; I25.10 Atherosclerotic heart disease of native coronary artery without angina pectoris; E11.65 Type 2 diabetes mellitus with hyperglycemia; R59.0 Localized enlarged lymph nodes; G89.29 Other chronic pain

== ENCOUNTER 2020-07-13 10:29 | Emergency (ER) | payer OTHER ==
[~2020-07-13] VITALS: Ht 180.3 cm; Wt 95.3 kg
[2020-07-13 10:37] VITALS: BP 136/84
[2020-07-13 11:23] LABS: BASO # 0.1 10*3/uL (0.0-0.1); BASO % 0.8 % (0.0-1.0); EOS # 0.4 10*3/uL (0.0-0.4); EOS % 2.6 % (1.0-4.0); HEMATOCRIT 45.1 % (42.0-52.0); LYMPH # 3.4 10*3/uL (1.3-4.4); LYMPH % 23.8 % (27.0-41.0); MEAN CELL VOLUME 81.6 fl (80.0-94.0); MEAN CORPUSCULAR HGB 27.7 pg (27.0-31.0); MEAN CORPUSCULAR HGB CONC 33.9 g/dl (33.0-37.0); MONO # 0.9 10*3/uL (0.1-1.0); MONO % 6.1 % (3.0-9.0); NEUT # 9.5 10*3/uL (2.3-7.9); NEUT % 66.3 % (47.0-73.0); PLATELET COUNT AUTOMATED 301 10*3/uL (130-400); RED BLOOD COUNT 5.53 10*6/uL (4.50-5.90); WHITE BLOOD COUNT 14.4 10*3/uL (4.8-10.8)
[2020-07-13 11:40] LABS: ALBUMIN 3.5 gm/dl (3.1-4.5); ALKALINE PHOSPHATASE 73 U/L (45-117); BUN 22 mg/dl (7-24); CHLORIDE 102 mmol/L (98-107); CREATININE 1.33 mg/dL (0.70-1.30); POTASSIUM 3.4 mmol/L (3.5-5.1); SGOT/AST 12 IU/L (3-35); SGPT/ALT 33 U/L (12-78); SODIUM 135 mmol/L (136-145); TOTAL PROTEIN 7.7 gm/dL (6.4-8.2)
[2020-07-13] MEDS ORDERED: FLONASE ALLERG9.9 ML NAS (13:30)
[2020-07-13] MEDS ORDERED: AUGMENTIN 875875 MG PO (13:30)
[2020-07-13] MEDS ORDERED: ZYRTEC10 M3 PO (13:30)
[2020-07-13] MEDS ORDERED: CLARITIN10 MG PO (13:34)
== END 2020-07-13 13:35 | disposition home or self-care (01) ==
LOC: ED 10:29
PROVIDERS: Physician Assistant
DX: H66.91 Otitis media, unspecified, right ear (principal); H92.02 Otalgia, left ear; J02.9 Acute pharyngitis, unspecified; R51 Headache; F17.200 Nicotine dependence, unspecified, uncomplicated; Z88.8 Allergy status to other drugs, medicaments and biological substances; Z79.899 Other long term (current) drug therapy; Z79.82 Long term (current) use of aspirin; Z79.4 Long term (current) use of insulin

== ENCOUNTER 2020-09-22 12:47 | Emergency (ER) | payer OTHER ==
[~2020-09-22] VITALS: Ht 180.3 cm; Wt 104.3 kg
[~2020-09-22 12:47] MED LIST changes: +ZYRTEC10 M3 PO
[2020-09-22 12:52] VITALS: BP 152/90
[2020-09-22] MEDS ORDERED: METHOCARBAMOL500 M1 PO (15:36)
[2020-09-22] MEDS ORDERED: NAPROSYN500 MG PO (15:36)
== END 2020-09-22 15:41 | disposition home or self-care (01) ==
LOC: ED 12:47
DX: S16.1XXA Strain of muscle, fascia and tendon at neck level, initial encounter (principal); I10 Essential (primary) hypertension; J44.9 Chronic obstructive pulmonary disease, unspecified; F41.9 Anxiety disorder, unspecified; F17.200 Nicotine dependence, unspecified, uncomplicated; Z88.8 Allergy status to other drugs, medicaments and biological substances; Z79.899 Other long term (current) drug therapy; Z79.4 Long term (current) use of insulin; Z79.82 Long term (current) use of aspirin; V89.2XXA Person injured in unspecified motor-vehicle accident, traffic, initial encounter; Y93.9 Activity, unspecified; Y92.89 Other specified places as the place of occurrence of the external cause; Y99.8 Other external cause status

== ENCOUNTER 2021-04-08 17:19 | Emergency (ER) | payer OTHER ==
[~2021-04-08] VITALS: Ht 180.3 cm; Wt 93.0 kg
[~2021-04-08 17:19] MED LIST changes: +METHOCARBAMOL500 M1 PO; +NAPROSYN500 MG PO
[2021-04-08 18:06] LABS: BASO # 0.1 10*3/uL (0.0-0.1); BASO % 1.3 % (0.0-1.0); EOS # 0.4 10*3/uL (0.0-0.4); EOS % 4.3 % (1.0-4.0); HEMATOCRIT 47.4 % (42.0-52.0); LYMPH # 2.5 10*3/uL (1.3-4.4); LYMPH % 26.9 % (27.0-41.0); MEAN CELL VOLUME 83.6 fl (80.0-94.0); MEAN CORPUSCULAR HGB 28.7 pg (27.0-31.0); MEAN CORPUSCULAR HGB CONC 34.4 g/dl (33.0-37.0); MEAN PLATELET VOLUME 10.4 fl (9.6-12.3); MONO # 1.1 10*3/uL (0.1-1.0); MONO % 11.7 % (3.0-9.0); NEUT # 5.2 10*3/uL (2.3-7.9); NEUT % 55.4 % (47.0-73.0); PLATELET COUNT AUTOMATED 294 10*3/uL (130-400); RED BLOOD COUNT 5.67 10*6/uL (4.50-5.90); RED CELL DISTRI WIDTH 13.4 % (0-14.5); WHITE BLOOD COUNT 9.5 10*3/uL (4.8-10.8)
[2021-04-08 18:25] LABS: ALBUMIN 3.5 gm/dl (3.1-4.5); ALKALINE PHOSPHATASE 83 U/L (45-117); BUN 18 mg/dl (7-24); CHLORIDE 102 mmol/L (98-107); CREATININE 1.22 mg/dL (0.70-1.30); POTASSIUM 3.5 mmol/L (3.5-5.1); SGOT/AST 22 IU/L (3-35); SGPT/ALT 35 U/L (12-78); SODIUM 134 mmol/L (136-145); TOTAL PROTEIN 8.2 gm/dL (6.4-8.2)
[2021-04-08 18:27] LABS: TROPONIN I < 0.015 ng/ml (<0.045)
[2021-04-08 20:21] VITALS: BP 124/74
[2021-04-08] MEDS ORDERED: AUGMENTIN 875875 MG PO (20:53)
== END 2021-04-08 20:56 | disposition home or self-care (01) ==
LOC: ED 17:19
PROVIDERS: Student in an Organized Health Care Education/Training Program
DX: R51.9 Headache, unspecified (principal); F17.200 Nicotine dependence, unspecified, uncomplicated; Z90.49 Acquired absence of other specified parts of digestive tract; Z79.82 Long term (current) use of aspirin; Z79.899 Other long term (current) drug therapy; Z88.8 Allergy status to other drugs, medicaments and biological substances

== ENCOUNTER → 2022-10-04 | Outpatient (CLI) | payer OTHER | END | disposition home or self-care (01) | LOC: RAD 09:06 | PROVIDERS: ATTEND Family Medicine | DX: M43.16 Spondylolisthesis, lumbar region (principal); M25.78 Osteophyte, vertebrae; M54.16 Radiculopathy, lumbar region; G95.89 Other specified diseases of spinal cord ==

== ENCOUNTER → 2022-10-26 | Outpatient (CLI) | payer OTHER | END | disposition home or self-care (01) | LOC: MRI 01:01 | PROVIDERS: ATTEND Family Medicine | DX: M43.16 Spondylolisthesis, lumbar region (principal) ==

== ENCOUNTER 2023-07-05 18:08 | Emergency (ER) | payer OTHER ==
[~2023-07-05] VITALS: Ht 180.3 cm; Wt 99.8 kg
[2023-07-05 18:58] LABS: BASO # 0.1 10*3/uL (0.0-0.1); EOS # 0.3 10*3/uL (0.0-0.4); EOS % 2.4 % (1.0-4.0); HEMATOCRIT 48.7 % (42.0-52.0); LYMPH # 3.3 10*3/uL (1.3-4.4); LYMPH % 30.2 % (27.0-41.0); MEAN CELL VOLUME 81.6 fl (80.0-94.0); MEAN CORPUSCULAR HGB 27.6 pg (27.0-31.0); MEAN CORPUSCULAR HGB CONC 33.9 g/dl (33.0-37.0); MEAN PLATELET VOLUME 9.8 fl (9.6-12.3); MONO # 0.8 10*3/uL (0.1-1.0); MONO % 6.9 % (3.0-9.0); NEUT # 6.5 10*3/uL (2.3-7.9); NEUT % 58.9 % (47.0-73.0); PLATELET COUNT AUTOMATED 251 10*3/uL (130-400); RED BLOOD COUNT 5.97 10*6/uL (4.50-5.90); RED CELL DISTRI WIDTH 13.6 % (0-14.5)
[2023-07-05 19:10] LABS: ACT PARTIAL THROMBO TIME 26.8 SECONDS (20.0-32.1); INTERNATIONAL NORM RATIO 0.9 (2.0-3.5)
[2023-07-05 19:20] LABS: ALKALINE PHOSPHATASE 66 U/L (46-116); BUN 20 mg/dl (9-23); CHLORIDE 105 mmol/L (98-107); POTASSIUM 3.5 mmol/L (3.4-5.1); SGPT/ALT 35 U/L (10-49); TOTAL PROTEIN 7.2 gm/dL (6.0-8.0)
[2023-07-05 20:23] VITALS: BP 143/84
[2023-07-05 20:34] LABS: BILIRUBIN Negative (Negative); BLOOD Negative (Negative); CLARITY Clear (Clear); COLOR Yellow (Yellow); GLUCOSE 3+ (Negative); KETONE Negative (Negative); LEUKO ESTERASE Negative (Negative); NITRITE Negative (Negative); PH 5.5 (4.5-8.0); SPECIFIC GRAVITY 1.025 (1.001-1.030); UROBILINOGEN 0.2 E.U./dl (0.0-1.0)
[2023-07-05 20:52] LABS: BACTERIA TRACE; EPITHELIAL CELLS 0-2; RBC 0-2 rbc/hpf (0-2); WBC 0-2 wbc/hpf (0-5)
[2023-07-05] MEDS ORDERED: CYCLOBENZAPRINE10 MG PO (21:23)
[2023-07-05] MEDS ORDERED: ARTHRITIS PAIN150 GM T (21:23)
== END 2023-07-05 21:41 | disposition home or self-care (01) ==
LOC: ED 18:08
PROVIDERS: Internal Medicine; Nurse Practitioner
DX: S29.011A Strain of muscle and tendon of front wall of thorax, initial encounter (principal); R11.0 Nausea; M54.9 Dorsalgia, unspecified; I10 Essential (primary) hypertension; J44.9 Chronic obstructive pulmonary disease, unspecified; I25.2 Old myocardial infarction; F32.A Depression, unspecified; F41.9 Anxiety disorder, unspecified; Z90.89 Acquired absence of other organs; Z88.8 Allergy status to other drugs, medicaments and biological substances; Z90.49 Acquired absence of other specified parts of digestive tract; Z98.890 Other specified postprocedural states; F17.200 Nicotine dependence, unspecified, uncomplicated; X58.XXXA Exposure to other specified factors, initial encounter; Y93.89 Activity, other specified; Y92.89 Other specified places as the place of occurrence of the external cause; Y99.8 Other external cause status

== ENCOUNTER 2023-10-17 12:07 | Emergency (ER) | payer OTHER ==
[~2023-10-17] VITALS: Ht 180.3 cm; Wt 56.2 kg
[~2023-10-17 12:07] MED LIST changes: +ARTHRITIS PAIN150 GM T; +CYCLOBENZAPRINE10 MG PO
[2023-10-17 12:14] VITALS: BP 169/88
[2023-10-17 13:17] LABS: BASO # 0.1 10*3/uL (0.0-0.1); BASO % 0.9 % (0.0-1.0); EOS # 0.2 10*3/uL (0.0-0.4); EOS % 1.8 % (1.0-4.0); HEMATOCRIT 47.7 % (42.0-52.0); LYMPH % 15.9 % (27.0-41.0); MEAN CELL VOLUME 81.4 fl (80.0-94.0); MEAN CORPUSCULAR HGB CONC 33.1 g/dl (33.0-37.0); MEAN PLATELET VOLUME 10.1 fl (9.6-12.3); MONO % 8.2 % (3.0-9.0); NEUT # 9.2 10*3/uL (2.3-7.9); NEUT % 72.6 % (47.0-73.0); PLATELET COUNT AUTOMATED 227 10*3/uL (130-400); RED BLOOD COUNT 5.86 10*6/uL (4.50-5.90); RED CELL DISTRI WIDTH 13.7 % (0-14.5); WHITE BLOOD COUNT 12.6 10*3/uL (4.8-10.8)
[2023-10-17 13:39] LABS: ALKALINE PHOSPHATASE 80 U/L (46-116); BUN 27 mg/dl (9-23); CHLORIDE 102 mmol/L (98-107); POTASSIUM 3.5 mmol/L (3.4-5.1); SGPT/ALT 27 U/L (5-49); TOTAL PROTEIN 7.4 gm/dL (6.0-8.0)
[2023-10-17] MEDS ORDERED: AMOX-CLAV 875-1 EACH PO (16:31)
== END 2023-10-17 17:04 | disposition home or self-care (01) ==
LOC: ED 12:07
PROVIDERS: Nurse Practitioner Family
DX: K11.20 Sialoadenitis, unspecified (principal); J44.9 Chronic obstructive pulmonary disease, unspecified; E78.5 Hyperlipidemia, unspecified; I10 Essential (primary) hypertension; E66.01 Morbid (severe) obesity due to excess calories; E11.9 Type 2 diabetes mellitus without complications; F17.200 Nicotine dependence, unspecified, uncomplicated; Z88.8 Allergy status to other drugs, medicaments and biological substances; Z79.899 Other long term (current) drug therapy; Z79.2 Long term (current) use of antibiotics; Z79.4 Long term (current) use of insulin; Z79.82 Long term (current) use of aspirin; Z98.890 Other specified postprocedural states; Z90.49 Acquired absence of other specified parts of digestive tract; Z68.30 Body mass index [BMI] 30.0-30.9, adult

== ENCOUNTER → 2023-12-01 | Outpatient (CLI) | payer MEDICAID ==
[~2023-12-01] MED LIST changes: +AMOX-CLAV 875-1 EACH PO
== END | disposition home or self-care (01) ==
LOC: US 11-21 10:00
PROVIDERS: ATTEND Family Medicine
DX: I12.9 Hypertensive chronic kidney disease with stage 1 through stage 4 chronic kidney disease, or unspecified chronic kidney disease (principal); E11.22 Type 2 diabetes mellitus with diabetic chronic kidney disease; N18.9 Chronic kidney disease, unspecified; R80.9 Proteinuria, unspecified

== ENCOUNTER 2024-10-17 17:56 | Emergency (ER) | payer MEDICAID ==
[~2024-10-17] VITALS: Ht 180.3 cm; Wt 104.3 kg
[2024-10-17 17:59] VITALS: BP 106/64
[2024-10-17] MEDS ORDERED: Ondansetron Hydrochloride 4 MG/2 ML VIAL IV ONE ×2 (18:05→18:10)
[2024-10-17] MEDS ORDERED: ACETAMINOPHEN 325 MG TAB PO ONE ×2 (18:05→18:10)
[2024-10-17] MEDS ORDERED: SODIUM CHLORIDE 0.9% 1,000 ML IV ONE ×2 (18:05→18:10)
[2024-10-17 18:48] LABS: BILIRUBIN Negative (Negative); BLOOD 1+ (Negative); CLARITY Clear (Clear); COLOR Yellow (Yellow); GLUCOSE 3+ (Negative); KETONE Negative (Negative); LEUKO ESTERASE Negative (Negative); NITRITE Negative (Negative); PH 5.5 (4.5-8.0); SPECIFIC GRAVITY 1.025 (1.001-1.030)
[2024-10-17 18:54] LABS: BASO % 0.4 % (0.0-1.0); EOS % 0.1 % (1.0-4.0); HEMATOCRIT 44.1 % (42.0-52.0); MEAN CELL VOLUME 80.5 fl (80.0-94.0); MEAN CORPUSCULAR HGB 26.5 pg (27.0-31.0); MEAN CORPUSCULAR HGB CONC 32.9 g/dl (33.0-37.0); MEAN PLATELET VOLUME 9.2 fl (9.6-12.3); MONO # 0.7 10*3/uL (0.1-1.0); MONO % 8.1 % (3.0-9.0); NEUT # 6.6 10*3/uL (2.3-7.9); NEUT % 81.3 % (47.0-73.0); PLATELET COUNT AUTOMATED 173 10*3/uL (130-400); RED BLOOD COUNT 5.48 10*6/uL (4.50-5.90); RED CELL DISTRI WIDTH 13.6 % (0-14.5); WHITE BLOOD COUNT 8.1 10*3/uL (4.8-10.8)
[2024-10-17 18:55] LABS: URINE AMPHETAMINES Negative (1000ng/ml); URINE BARBITURATES Negative (200ng/ml); URINE BENZODIAZEPINES Negative (200ng/ml); URINE CANNABINOIDS (THC) Negative (50ng/ml); URINE COCAINE Negative (300ng/ml); URINE METHADONE Negative (300ng/ml); URINE OPIATES Negative (300ng/ml); URINE PHENCYCLIDINE Negative (25ng/ml); WBC 0-2 wbc/hpf (0-5)
[2024-10-17 19:33] LABS: BUN 18 mg/dl (9-23); CHLORIDE 102 mmol/L (98-107); ETHYL ALCOHOL < 3.0 mg/dl (<3); POTASSIUM 3.3 mmol/L (3.4-5.1)
[2024-10-17] MEDS ORDERED: POTASSIUM CHLORIDE 20 MEQ TAB PO ONE (19:40)
[2024-10-17] MEDS ORDERED: Ondansetron4 MG PO (20:07)
[2024-10-17] MEDS ORDERED: TAMIFLU 75MG CA75 MG PO (20:07)
[2024-10-17] MEDS ORDERED: Oseltamivir Phosphate 75 MG CAP PO ONE (20:20)
[2024-10-17] MEDS ORDERED: Ondansetron Hydrochloride 4 MG TAB PO ONE (20:20)
== END 2024-10-17 20:23 | disposition home or self-care (01) ==
LOC: ED 17:56
PROVIDERS: Physician Assistant Medical
DX: J10.1 Influenza due to other identified influenza virus with other respiratory manifestations (principal); Z20.822 Contact with and (suspected) exposure to COVID-19; J44.9 Chronic obstructive pulmonary disease, unspecified; I25.2 Old myocardial infarction; I10 Essential (primary) hypertension; E11.9 Type 2 diabetes mellitus without complications; F41.9 Anxiety disorder, unspecified; F32.A Depression, unspecified; F17.210 Nicotine dependence, cigarettes, uncomplicated; F11.10 Opioid abuse, uncomplicated; Z79.899 Other long term (current) drug therapy; Z88.8 Allergy status to other drugs, medicaments and biological substances; Z90.89 Acquired absence of other organs; Z90.49 Acquired absence of other specified parts of digestive tract; Z98.890 Other specified postprocedural states

== ENCOUNTER → 2025-03-11 | Outpatient (CLI) | payer MEDICAID ==
[~2025-03-11] MED LIST changes: +Ondansetron4 MG PO; +TAMIFLU 75MG CA75 MG PO
== END | disposition home or self-care (01) ==
LOC: MRI 03-03 10:00
PROVIDERS: ATTEND Family Medicine
DX: M75.122 Complete rotator cuff tear or rupture of left shoulder, not specified as traumatic (principal); M25.512 Pain in left shoulder

== ENCOUNTER → 2025-05-22 | Outpatient (CLI) | payer MEDICAID ==
[2025-05-22 13:18] LABS: BUN 17.0 mg/dl (9-23); SGPT/ALT 33.0 U/L (5-49)
== END | disposition home or self-care (01) ==
LOC: LAB 12:36
PROVIDERS: Student in an Organized Health Care Education/Training Program; ATTEND Internal Medicine Endocrinology, Diabetes & Metabolism
DX: E11.65 Type 2 diabetes mellitus with hyperglycemia (principal); E78.5 Hyperlipidemia, unspecified; E78.1 Pure hyperglyceridemia; I25.10 Atherosclerotic heart disease of native coronary artery without angina pectoris